=== PATIENT | female | born 1995 | race Caucasian/White ===

== ENCOUNTER 2020-06-21 10:17 | Inpatient (IN) | payer MEDICAID ==
[~2020-06-21] VITALS: Ht 160 cm; Wt 79.8 kg
[2020-06-21] MEDS ORDERED: LEVE500T9 PO (10:30)
--- NOTE | 2020-06-21 10:35 | NUR ---
HENRY FROM PT WORK. TO ER BED 1. AAOX4. NOT IN RESP DISTRESS. AMBULATORY. CAME IN FOR SEIZURE. PER EMS REPORT, PT HAD 3 EPISODE OF SEIZURE WITNESSED BY COWORKER DESCRIBED PT JUST STARED AND STARTED TWITCHING. PT REFUSED TO GO TO THE HOSPITAL THE FIRST TIME THE PARAMEDICS CAME. PT DID GO TO THE HOSPITAL ON THE SECOND TIME PARAMEDICS CAME. PT REPORTS TAKING [facility] 750MD PO BID AND COMPLIANT W/ MEDS. PT PLACED ON SEIZURE PRECAUTION. WAS AT THE BEDSIDE FOR EVAL.IV LINE IN PLACE BY ISRRAEL, 18G R AC. WILL CONTINUE TO MONITOR PT
[2020-06-21 10:46] LABS: BASOPHILS % (AUTO) 0.3 % (0.0-2.0); EOSINOPHILS % (AUTO) 0.2 % (0.0-6.0); HEMATOCRIT 40 % (33-45); HEMOGLOBIN 12.9 g/dL (11.5-14.8); LYMPHOCYTES # (AUTO) 0.7 /CMM (0.8-4.8); LYMPHOCYTES % (AUTO) 7.6 % (20.0-44.0); MEAN CORPUSCULAR HGB CONC 33 g/dl (31.0-36.0); MEAN CORPUSCULAR VOLUME 100 fL (82-100); MONOCYTES # (AUTO) 0.3 /CMM (0.1-1.30); MONOCYTES % (AUTO) 3.1 % (2.0-12.0); NEUTROPHILS # (AUTO) 7.7 /CMM (1.8-8.9); NEUTROPHILS % (AUTO) 88.8 % (43.0-81.0); PLATELET COUNT (AUTO) 182 /CMM (150-450); RED BLOOD CELL COUNT(AUTO) 3.96 MIL/uL (4.0-5.2); WHITE BLOOD COUNT (AUTO) 8.7 K/uL (4.3-11.0)
[2020-06-21 10:55] LABS: CREATININE 0.8 mg/dL (0.6-1.3); POTASSIUM 4.1 mmol/L (3.5-5.1)
[2020-06-21 11:00] LABS: ALBUMIN 3.8 g/dL (3.4-5.0); BILIRUBIN,DIRECT 0.1 mg/dL (0.0-0.2); BILIRUBIN,TOTAL 0.3 mg/dL (0.2-1.0); TOTAL PROTEIN, SERUM 7.5 g/dL (6.4-8.2)
[2020-06-21] MEDS ORDERED: ACETAMINOPHEN ES 500 MG TABLET ONE (11:51)
[2020-06-21] MEDS ORDERED: LEVETIRACETAM (250 MG) 250 MG TABLET PO ONE ×2 (11:51→12:00)
--- NOTE | 2020-06-21 11:57 | NUR ---
WHILE GIVING MEDICATION TO THE PATIENT. PT HAD AN EPISODE OF SEIZURE PT STARED AND STARTED CONVULSING. NOTED @ 20 SEC IN DURATION. PLACED ON HER SIDE. PT AWOKEN, CONFUSED AND NOTED INCONTINENCE. MADE AWARE. CANCELLED PO MED. IV MEDS ORDERED
[2020-06-21] MEDS ORDERED: LEVETIRACETAM (500MG) 1,000 MG in IV NS 0.9% 100 ML IV SCH (12:00)
[2020-06-21] MEDS ORDERED: LORAZEPAM INJ 2 MG/ML VIAL IV ONE (12:00)
[2020-06-21] MEDS ORDERED: ACETAMINOPHEN 325 MG TABLET PO ONE (12:00)
[2020-06-21] MEDS ORDERED: LEVETIRACETAM (500MG) 1,000 MG in IV NS 0.9% 100 ML IV ONE (12:01)
--- NOTE | 2020-06-21 12:37 | NUR ---
MOVE SHEET SUBMITTED TO ADMITTING AND CALLED FOR MS BED.
--- NOTE | 2020-06-21 12:40 | NUR ---
PT TO CT ON [facility]
--- NOTE | 2020-06-21 12:50 | NUR ---
KIERRA (CONNIEFRIENNarciso) [phone]
--- NOTE | 2020-06-21 12:58 | NUR ---
COVID SWAB DONE AND SENT TO LAB
[2020-06-21 13:09] LABS: SERUM AMMONIA 10 umol/L (11-32)
[2020-06-21 13:13] LABS: APPEARANCE,URINE Clear (CLEAR); BILIRUBIN,URINE Negative (NEGATIVE); BLOOD, URINE Trace-intact Ery/uL (NEGATIVE); COLOR,URINE Yellow (YELLOW); KETONES,URINE 15 (NEGATIVE); LEUKOCYTE ESTERASE ,URINE Negative (NEGATIVE); NITRITE, URINE Negative (NEGATIVE); PH,URINE 5.5 (5.0-8.0); PROTEIN,URINE Negative (NEGATIVE); UGLUCOSE Negative (NEGATIVE); UROBILINOGEN,URINE 0.2 EU/dL (0.2)
[2020-06-21 13:14] LABS: BACTERIA,URINE Few /HPF (None Seen); SQUAMOUS EPITHELIAL CELL,UR Few /HPF (None Seen); WBC,URINE 0-2 /HPF (0-3)
--- NOTE | 2020-06-21 13:21 | NUR ---
PANEL ON-CALL PAGED
[2020-06-21 13:59] LABS: ACETAMINOPHEN 0 ug/ml (10-30); ALCOHOL, BLOOD < 3 mg/dL (0-0); SALICYLATE 2.1 mg/dL (2.8-20.0)
--- NOTE | 2020-06-21 14:49 | NUR ---
GOT BED 315-2.
--- NOTE | 2020-06-21 15:04 | NUR ---
report given to mark Bass for anamaria. pt is going to 328 instead of 313
--- NOTE | 2020-06-21 15:50 | NUR ---
pt transported to unit on [facility] with emt and rn at bedside. pt is in stable condition. nad noted during transport. pt ambulated from rney to bed.
[2020-06-21 16:00] VITALS: BP 112/50
--- NOTE | 2020-06-21 16:20 | NUR ---
Tele/RN - Admission Received patient from ER, admitted for Seizure disorder under the care of Dr. Rangel, alert and oriented x 4, denies pain, stable on room air, tele shows SR, no seizure activity noted at this time. Patient oriented to room, all belongings accounted for. Saline lock on the RAC is patent and intact. Skin assessment done, no skin breakdown, refused picture to be taken. Fall and seizure precautions initiated. Awaiting for admission orders from Dr. Rangel. Will continue to monitor closely.
[2020-06-21] MEDS ORDERED: IV NS 0.9% 1,000 ML IV PRN (17:29)
[2020-06-21] MEDS ORDERED: ONDANSETRON HCL/PF 4 MG/2 ML VIAL IVP PRN (17:30)
[2020-06-21] MEDS ORDERED: Z GUARD REMEDY 2 OZ OINT TP PRN (17:30)
[2020-06-21] MEDS ORDERED: LORAZEPAM INJ 2 MG/ML VIAL IV PRN (17:30)
--- NOTE | 2020-06-21 18:25 | NUR ---
Tele/RN - End of shift summary Patient is A/O x 4, SR on the monitor, denies pain, no apparent distress, stable on room air, afebrile, no seizure activity noted this shift. IVF infusing well on the RAC with no complications. Discussed plan of care with patient and in agreement. Will continue with current medical management.
[2020-06-21] MEDS: ACETAMINOPHEN 325 MG TABLET PO PRN (18:27)
[2020-06-21 20:00] VITALS: BP 93/34
--- NOTE | 2020-06-21 20:00 | NUR ---
TELE/RN OPENING NOTE Patient awake in bed. A/O x4. Patient denies pain. Afebrile. No acute distress or SOB noted. Breath sounds, clear, even, unlabored. Skin warm, dry, appropriate for ethnicity, intact. Tele monitor sinus rhythm, heart rate 62. Seizure precautions maintained. Bowel sounds normoactive in all quadrants. Abdomen round, soft, non-distended. Patient urine output clear, yellow, no sediment. IV site RAC 18g patent and intact running NS @ 75 ml/hr. Bed in low position, wheels locked, side rails up x2, call light within reach.
[2020-06-21] MEDS: LEVETIRACETAM (250 MG) 250 MG TABLET PO SCH (20:06)
[2020-06-22] MEDS: ACETAMINOPHEN 325 MG TABLET PO PRN (04:14)
--- NOTE | 2020-06-22 04:16 | NUR ---
TELE/RN NOTE Patient's temperature 99.6. Administered acetaminophen as ordered. Will continue to monitor.
--- NOTE | 2020-06-22 06:40 | NUR ---
TELE/RN CLOSING NOTE Patient awake in bed. A/O x4. Patient denies pain. No acute distress or SOB noted. Breath sounds, clear, even, unlabored. Tele monitor sinus rhythm, heart rate 64. Seizure precautions maintained. Patient urine output clear, yellow, no sediment. Patient refused morning care at this time. IV site RAC 18g patent and intact running NS @ 75 ml/hr. Bed in low position, wheels locked, side rails up x2, call light within reach.
--- NOTE | 2020-06-22 07:15 | NUR ---
Tele/RN - Assessment Patient is awake, A/O x 4, states feeling better, SR on the monitor, denies pain, no apparent distress, stable on room air, no seizure activity. Labs reviewed, no critical results seen. Patient updated on plan of care. Will continue with current medical management.
[2020-06-22 07:34] LABS: BASOPHILS # (AUTO) 0.1 /CMM (0.0-0.2); BASOPHILS % (AUTO) 0.7 % (0.0-2.0); EOSINOPHILS % (AUTO) 0.1 % (0.0-6.0); HEMATOCRIT 38 % (33-45); HEMOGLOBIN 12.3 g/dL (11.5-14.8); LYMPHOCYTES # (AUTO) 1.3 /CMM (0.8-4.8); LYMPHOCYTES % (AUTO) 15.7 % (20.0-44.0); MEAN CORPUSCULAR HGB CONC 33 g/dl (31.0-36.0); MEAN CORPUSCULAR VOLUME 99 fL (82-100); MONOCYTES # (AUTO) 0.5 /CMM (0.1-1.30); MONOCYTES % (AUTO) 5.9 % (2.0-12.0); NEUTROPHILS # (AUTO) 6.4 /CMM (1.8-8.9); NEUTROPHILS % (AUTO) 77.6 % (43.0-81.0); PLATELET COUNT (AUTO) 186 /CMM (150-450); RED BLOOD CELL COUNT(AUTO) 3.81 MIL/uL (4.0-5.2); WHITE BLOOD COUNT (AUTO) 8.3 K/uL (4.3-11.0)
[2020-06-22 07:53] LABS: ALBUMIN 3.5 g/dL (3.4-5.0); BILIRUBIN,TOTAL 0.6 mg/dL (0.2-1.0); CALCIUM, SERUM 8.8 mg/dL (8.5-10.1); CREATININE 0.8 mg/dL (0.6-1.3); MAGNESIUM 2.1 mg/dL (1.8-2.4); PHOSPHORUS 2.8 mg/dL (2.5-4.9); POTASSIUM 3.6 mmol/L (3.5-5.1); TOTAL PROTEIN, SERUM 6.8 g/dL (6.4-8.2)
[2020-06-22 07:56] LABS: THYROID STIMULATING HORMONE 0.619 uIU/mL (0.358-3.74)
[2020-06-22 08:00] VITALS: BP 121/75
[2020-06-22] MEDS: LEVETIRACETAM (250 MG) 250 MG TABLET PO SCH (08:32)
[2020-06-22] MEDS ORDERED: phenytoin SODIUM IV 1,000 MG in IV NS 0.9% 100 ML IV ONE (09:30)
--- NOTE | 2020-06-22 10:00 | NUR ---
Tele/RN - Notes Dr. Godoy made aware that patient is refusing IV Dilantin and prefers to take oral instead. Per MD, it will take awhile for a loading dose but it is doable.
[2020-06-22] MEDS ORDERED: PHENYTOIN EXTENDED RELEASE 100 MG CAPSULE PO STA (10:11)
[2020-06-22] MEDS ORDERED: PHENYTOIN EXTENDED RELEASE 100 MG CAPSULE PO SCH ×2 (13:00)
[2020-06-22] MEDS ORDERED: LEVE1000 PO (15:15)
[2020-06-22] MEDS ORDERED: PHEN100C4 PO (15:15)
[2020-06-22] MEDS ORDERED: CALC-34 PO (15:15)
--- NOTE | 2020-06-22 16:45 | NUR ---
Tele/RN - Discharge Patient is alert and oriented x 4, ambulatory with steady gait, remain afebrile, denies pain, not in any form of distress, stable on room air, no seizure activity noted, discharged home in stable condition. Reviewed discharge instructions with patient and she verbalized full understanding of all teachings including medications and follow-up care with PCP within 1 week. Patient was advised to seek immediate medical attention for worsening symptoms, chest pain, shortness of breath, palpitations, abdominal pain/distention, intractable nausea and vomiting, diarrhea, hematochezia, melena, weakness, loss of consciousness, neurological deficit, or any other emergent concerns. All belongings returned and she deny any missing items. Discharge paperwork given and e-prescription was sent to her preferred pharmacy.
[2020-06-22] MEDS ORDERED: LEVETIRACETAM (250 MG) 250 MG TABLET PO SCH (21:00)
[2020-06-23] MEDS ORDERED: CALCIUM CARB 600MG /VIT D 1 EACH TABLET PO SCH (09:00)
[2020-06-23] MEDS ORDERED: PHENYTOIN EXTENDED RELEASE 100 MG CAPSULE PO SCH (13:00)
== END 2020-06-22 16:45 | disposition home or self-care (01) | DRG 53 ==
LOC: ER 10:21 → MED 15:08 → TELE 16:09
PROVIDERS: ADMIT Nurse Practitioner Acute Care; ATTEND Nurse Practitioner Acute Care
DX: G40.909 Epilepsy, unspecified, not intractable, without status epilepticus (principal); F12.90 Cannabis use, unspecified, uncomplicated; Z79.899 Other long term (current) drug therapy
CPT/HCPCS: 36415; 70450-TC; 80048-TC; 80053-TC; 80061-TC; 80076-TC; 80185-TC; 80305; 81000-TC; 82140-TC; 83605-TC; 83735-TC; 84100-TC; 84443-TC; 84702-TC; 85025-TC; 87081-TC; 87086-TC; G0378; G0480; J1165; J1953; J7030